=== PATIENT | male | born 1960 | race Caucasian/White ===

== ENCOUNTER → 2017-01-07 | Outpatient (CLI) | payer OTHER ==
[~2017-01-07] MED LIST: IOPAMIDOL (ISOVUE 370) 100 ML BTL IV ONE
== END ==
LOC: CIMAGING 08:05
PROVIDERS: ATTEND Thoracic Surgery (Cardiothoracic Vascular Surgery)
DX: I71.9 Aortic aneurysm of unspecified site, without rupture (principal)
CPT/HCPCS: 71275-PO; Q9967

== ENCOUNTER 2017-04-17 07:00 | Observation (INO) | payer BC, OTHER ==
[~2017-04-17 07:00] MED LIST changes: -IOPAMIDOL (ISOVUE 370) 100 ML BTL IV ONE; +OXYMETAZOLINE 30 ML NASAL SPRAY EACHNARE ONE; +ceFAZolin 2 GM/DEXTROSE 100 ML IV ONE
[2017-04-17] MEDS ORDERED: LR 1,000 ML IV ONE (07:47)
[2017-04-17] MEDS ORDERED: LIDOCAINE 1% 2 ML INJ ID PRN (07:47)
[2017-04-17] MEDS ORDERED: MIDAZOLAM 2 MG/2 ML VIAL IVP ONE (08:39)
--- NOTE | 2017-04-17 08:44 | PDANEPAE ---
ANE History of Present Illness FESS, thyroglossal cyst excision ANE Past Medical History - Cardiovascular History Hx Hypertension: Yes Hx Arrhythmias: No Hx Chest Pain: No Hx Coronary Artery / Peripheral Vascular Disease: No Hx CHF / Valvular Disease: No Hx Palpitations: No Cardiovascular History Comment: on Metoprolol x 2 mos- 128/85;. 10- heart scan: dilated ascending aorta- F/U Dr Shaffer. Pt will monitor Q 12 mos. - Pulmonary History Hx COPD: No Hx Asthma/Reactive Airway Disease: No Hx Recent Upper Respiratory Infection: No Hx Oxygen in Use at Home: No Hx Sleep Apnea: No Sleep Apnea Screening Result - Last Documented: Negative - Neurologic History Hx Cerebrovascular Accident: No Hx Seizures: No Hx Dementia: No - Endocrine History Hx Diabetes: No - Renal History Hx Renal Disorders: No - Liver History Hx Hepatic Disorders: No - Neurological & Psychiatric Hx Hx Neurological and Psychiatric Disorders: No - Cancer History Hx Cancer: No - Congenital Disorder History Hx Congenital Disorders: No - GI History Hx Gastrointestinal Disorders: Yes Gastrointestinal History Comment: dysphagia? - Other Health History Other Health History: thyroid duct lesion -L neck,. chronic maxillary sinusitis - Chronic Pain History Chronic Pain: Yes (sinus pain) - Surgical History Prior Surgeries: ISADORA 2010. R shoulder sx 1984 ANE Review of Systems Review of systems is: negative Review of Systems: - Exercise capacity Exercise capacity: >=4 METS METS (RN): 4 METS ANE Patient History - Allergies Allergies/Adverse Reactions: No Known Allergies Allergy (Verified 04/16/17 17:34) - Home Medications Home Medications: Metoprolol Tartrate [Lopressor 25 mg (*)] 25 mg PO DAILY 04/16/17 [Last Taken 05:30] - NPO status NPO Status: no food or drink >8 hours NPO Since - Liquids (Date): 04/16/17 NPO Since - Liquids (Time): 20:30 NPO Since - Solids (Date): 04/16/17 NPO Since - Solids (Time): 18:00 - Anes Hx Anes Hx: no prior problems - Smoking Hx Smoking Status: Former smoker - Alcohol Use Alcohol Use: Occasionally (4/wk) - Family Anes Hx Family Anes Hx: none ANE Labs/Vital Signs - Vital Signs Blood Pressure: 140/93 Heart Rate: 58 Respiratory Rate: 16 O2 Sat (%): 94 Height: 187.96 cm Weight: 122.47 kg ANE Physical Exam - Airway Neck exam: decreased ROM Mallampati Score: Class 2 Mouth exam: normal dental/mouth exam - Pulmonary Pulmonary: no respiratory distress - Cardiovascular Cardiovascular: regular rate and rhythym - ASA Status ASA Status: II ANE Anesthesia Plan Anesthesia Plan: general endotracheal anesthesia
[2017-04-17] MEDS ORDERED: LIDOCAINE 2% 5 ML SDV ONE (08:59)
[2017-04-17] MEDS ORDERED: ONDANSETRON 4 MG/2 ML VIAL ONE (08:59)
[2017-04-17] MEDS ORDERED: ROCURONIUM 100 MG/10 ML VIAL ONE (08:59)
[2017-04-17] MEDS ORDERED: PROPOFOL 200 MG/20 ML VIAL ONE (08:59)
[2017-04-17] MEDS ORDERED: DEXAMETHASONE 4 MG/ML VIAL ONE (08:59)
[2017-04-17] MEDS ORDERED: fentaNYL 100 MCG/2 ML INJ ONE ×2 (08:59→10:48)
--- NOTE | 2017-04-17 09:03 | PDHPUP ---
History & Physical Update H&P update statement: This history and physical update is based on an assessment of the patient which was completed after admission or registration (within 24 hours), but prior to the surgery/procedure. No new findings. Some increase in neck mass size, per pt. Denies fevers, dysphagia. EXAM AVSS NAD Normal anterior nasal exam Neck supple w superior midline mildly tender mass. CN 2-12 grossly intact A/P: Neck mass, Maxillary sinus mass. Plan to remove in OR today.
[2017-04-17] MEDS ORDERED: OXYMETAZOLINE 30 ML NASAL SPRAY ONE (09:10)
[2017-04-17] MEDS ORDERED: LIDO/EPI 1% **Not for Epidural 20 ML MDV ONE (09:10)
[2017-04-17] MEDS ORDERED: ceFAZolin 1 GM VIAL ONE (12:29)
[2017-04-17] MEDS ORDERED: SUGAMMADEX SODIUM 200 MG/2 ML VIAL IVP ONE (12:29)
--- NOTE | 2017-04-17 13:02 | POSTOPPROG ---
Post Op Note Date of Operation: 04/18/17 Surgeon: Rene Altamirano Anesthesia: GET(General Endotracheal) Pre-op Diagnosis: S/P R Maxillary Antrostomy w FB, Thyroglossal duct cyst excision Post-op Diagnosis: S/P R Maxillary Antrostomy w FB, Thyroglossal duct cyst excision Indication: S/P R Maxillary Antrostomy w FB, Thyroglossal duct cyst excision Procedure: S/P R Maxillary Antrostomy w FB, Thyroglossal duct cyst excision Findings: S/P R Maxillary Antrostomy w FB, Thyroglossal duct cyst excision Inf/Abcess present in the surg proc area at time of surgery?: Yes Depth: Organ Space (R max sinus) EBL: Minimal Drains: Rajan Nelson Specimen(s): neck mass sinus mass
[2017-04-17] MEDS ORDERED: D5W LR 1,000 ML IV SCH (13:04)
[2017-04-17] MEDS ORDERED: OXYMETAZOLINE 30 ML NASAL SPRAY EACHNARE PRN (13:04)
[2017-04-17] MEDS ORDERED: PROMETHAZINE HCL 25 MG/ML INJ IVP PRN (13:20)
[2017-04-17] MEDS ORDERED: NALOXONE HCL 0.4 MG/ML INJ IVP PRN (13:20)
[2017-04-17] MEDS ORDERED: fentaNYL 100 MCG/2 ML INJ IVP PRN (13:20)
[2017-04-17] MEDS ORDERED: HYDROmorphONE/DILAUDID 1 MG/ML INJ IVP PRN (13:20)
[2017-04-17] MEDS ORDERED: ONDANSETRON 4 MG/2 ML VIAL IVP PRN (13:20)
[2017-04-17] MEDS ORDERED: HYDROmorphONE/DILAUDID 1 MG/ML INJ ONE (13:27)
[2017-04-17] MEDS: HEPARIN 5,000 UNIT/0.5 ML SYR SC SCH (15:20)
[2017-04-17] MEDS: HYDROCODONE/APAP 5/325 TAB PO PRN (21:11)
[2017-04-18] MEDS: HEPARIN 5,000 UNIT/0.5 ML SYR SC SCH (05:48)
--- NOTE | 2017-04-18 07:27 | SOAPPROG ---
SOAP Progress Note Assessment/Plan: Assessment:Postop day 1 status post excision of thyroglossal duct cyst and functional endoscopic sinus surgery with removal of right maxillary sinus foreign body. Good postop recovery. The postop findings. Drain removed. Plan: Okay for discharge today. Discharge instructions printed out and placed in chart. Prescriptions provided. Recommend patient follow up in 1 week. Call my office to schedule. [phone] 04/18/17 07:24 Subjective: pain well controlled. Did have some nose bleeding yesterday. This was stopped. Objective: Vital Signs Temp Pulse Resp BP Pulse Ox 36.7 C 75 17 131/100 H 92 04/18/17 04:00 04/18/17 04:00 04/18/17 04:00 04/18/17 04:00 04/18/17 04:00 04/17/17 04/18/17 04/19/17 05:59 05:59 05:59 Intake Total 2200 Output Total 850 Balance 1350 - Pending Discharge Pending Discharge Within 24 Hours: Yes Pending Discharge Date: 04/19/17 Pending Discharge Time: 11:00 Physical Exam - Physical Exam General Appearance: WD/WN, alert, no apparent distress EENT: PERRL/EOMI, normal ENT inspection, pharynx normal, other (Incision at neck. This is intact And non erythematous. Drain incision intact. No erythema or fullness.) Neck: full range of motion, supple Respiratory: No respiratory distress, No stridor Skin: normal color, warm/dry Neuro/Psych: alert, normal mood/affect, oriented x 3 ICD10 Worksheet Patient Problems: Problems Problem Status Onset Maxillary sinusitis, chronic Acute Thyroglossal duct cyst Acute - ICD10 Problem Qualifiers (1) Thyroglossal duct cyst (2) Maxillary sinusitis, chronic
[2017-04-18] MEDS ORDERED: FLU VACC QS 2017-18 (3YR+)/PF 0.5 ML SYR (FLUARIX QUAD) IM ONE (07:43)
[2017-04-18 08:09] VITALS: BP 130/92; PULSE 73; RESP 16; TEMP 98.1; O2SAT 91
[2017-04-18] MEDS: HYDROCODONE/APAP 5/325 TAB PO PRN (09:23)
--- NOTE | 2017-04-18 17:19 | ASDISCHSUM ---
Discharge Information Plan Status:Home with No Needs Medically Cleared to Leave: Discharge Date:04/18/2017 09:51 AM CM D/C Disposition:Home, Routine, Self-Care ADT D/C Disposition:Home, Routine, Self-Care Projected Discharge Date:04/18/2017 12:00 AM Transportation at D/C: Discharge Delay Reason: Follow-Up Date:04/18/2017 12:00 AM Discharge Slot: Final Diagnosis: Placement Information Patient Contact Information Contact Name:CARLOS Relationship: Address:[address] [place] Alternate Phone: [facility]/Zip Code:[place] [address] Email: Financial Information Financial Class:HMO and PPO Plans Primary Plan Desc:HMO [employer] Primary Plan Number:[id number] Secondary Plan Desc: Secondary Plan Number: Assessment Information Intervention Information
--- NOTE | 2017-05-27 11:29 | GPROG ---
[f rep st] PROGRESS NOTE POSTOPERATIVE ANESTHESIA NOTE No anesthetic complications were noted, patient back to baseline cardiopulmonary status. /[id number]/MODL MTDD
--- NOTE | 2017-05-27 15:25 | GOP ---
[f rep st] OPERATIVE REPORT DATE OF OPERATION: 04/17/2017 SURGEON: Rene Altamirano MD ANESTHESIA: General. PREOPERATIVE DIAGNOSIS: Right maxillary sinus mass, thyroglossal duct cyst. POSTOPERATIVE DIAGNOSIS: Right maxillary sinus mass, thyroglossal duct cyst. PROCEDURE PERFORMED: Right endoscopic maxillary antrostomy with foreign body removal, thyroglossal d uct cyst excision. FINDINGS: Right maxillary sinus foreign body, consistent with molar. Anterior neck cystic structure , extending through hyoid bone into the tongue base, consistent with thyroglossal duct cyst. SPECIMENS: Nasal foreign body and neck soft tissue. ESTIMATED BLOOD LOSS: Minimal. INDICATIONS: The patient was seen in the outpatient clinic and found to have history, symptoms, and findings consistent with right maxillary sinus mass and thyroglossal duct cyst. Given his history an d findings, he was determined to be an appropriate candidate for the above-stated procedures. The ri sks, benefits, and alternatives to the procedures were explained at length the patient, who stated he understood and wished to go forward with the procedures. DESCRIPTION OF PROCEDURE: The patient was brought to the operating room by Anesthesiology and placed on the operating table. Once the appropriate level of anesthesia was achieved, the patient was prep ped and draped for the nasal portion of the procedure. 1% lidocaine with 1:100,000 epinephrine was i njected into the uncinate process and middle turbinate. Afrin-soaked pledgets were placed. Once the operative field and equipment were set in place, the Afrin-soaked pledgets were removed. A 0-degree rigid video endoscope was then used in the right nasal cavity to visualize appropriate anatomy. A F reer elevator, in combination with a [id number] cut was used to complete a right uncinect gretel. A backbiter and kjeroikw-tpzim-rolvieq cut were then used to widely open the maxillary antrum. There was mild bleeding with this, and hemostasis was achieved using Bovie suction electrocautery at the fresh cut edges. The 0-degree endoscope was changed out for a 45-degree scope. A curved suctio n was used to clear purulent material from the maxillary antrum and right maxillary sinus. A foreign body was visualized within the maxillary sinus. Attempts were made with a giraffe forceps to grasp these, but this was unsuccessful. The curved suction was then used to medialize the foreign body int o the maxillary antrostomy. Once this was wedged within the antrostomy, a straight suction was used to further medialize it and bring it into the nasal cavity. A nasal tampon forceps was then used to grasp the foreign body and bring it out through the nasal cavity. This was sent in formalin for clarita reynaga pathology reading. Afrin-soaked pledgets were placed within the nasal cavity. After given a chanc e to soak, they were removed. Nasal cavity was visualized under endoscopic visualization. There was minimal bleeding, and the maxillary sinus appeared clear. The patient was then prepped and draped for the neck portion of the procedure. Over the palpable ant erior superior neck mass, a 2 cm incision was created within a horizontal neck crease. Soft tissue d issection continued with a combination of Bovie electrocautery and blunt dissection. The capsule of the lesion was then encountered. Subplatysmal flaps were raised superiorly and inferiorly. 2 pairs of Weitlaners were then used to stent the incisional opening. The capsule of the mass was then follo wed anteriorly and descended to the level of the thyroid cartilage. Once the base of it was found, t his was elevated off the underlying tissues and dissected superiorly. At this point, the cystic mass was violated, and fluid drained. This was suctioned and irrigated. The mass was dissected in a per icapsular fashion superiorly to the level of the hyoid bone. Bovie electrocautery was used to dissec t the muscular attachments off the superior aspects and inferior aspects of the medial portions of th e hyoid bone. The bone was cut bilaterally about 0.5 to 1 cm on each side from midline. The bone en ds were cauterized with Bovie electrocautery. There was no bleeding with this. Dissection continued , with the tract somewhat dissipating but leading superiorly to the base of the tongue. Once this wa s reached superiorly at the tongue base, this was suture ligated, and then, with sutures tied in plac e at the tongue base, the tract was cauterized with bipolar cautery. The specimen was then able to b e removed en heena. This was sent for final pathology. The surgical bed was irrigated with copious normal saline. Superiorly and inferiorly, the surgical site was inspected for bleeding. Hemostasis was readily achieved using bipolar cautery. The site was irrigated again and cleaned. Anesthesia ga ve the patient a Valsalva, and no bleeding or bloody ooze was seen. A silicon BARRY drain was placed wi thin the surgical bed and run out through a skin incision to the left of the primary incision. This was attached to bulb suction. The strap muscles were then reapproximated in the midline using a sing le dniiyv-xr-xxkig chromic suture. The platysma then was reapproximated using interrupted buried chr omic sutures. The subcutaneous tissues were then reapproximated using buried interrupted chromic sut ures. Then the skin was closed using Dermabond. A silk drain suture was placed. The patient tolera mak the procedure well and was extubated in the operating room prior to being transferred, in good co ndition, to the postanesthesia care unit. /[id number]/MODL
--- NOTE | 2017-05-27 18:46 | GDS ---
[f rep st] DISCHARGE SUMMARY REASON FOR ADMISSION: Postop sinus and neck surgery. HOSPITAL COURSE: The patient underwent thyroglossal duct cyst excision and right maxillary sinus for eign body excision on 04/17/2017. He tolerated both procedures well and was kept in-house overnight for airway monitoring and secondary to surgical drain placement. He did well overnight and had good pain control and appropriate levels of drainage from his BARRY drain in his neck. Given his resumption of ADLs, his appropriate tolerance of a regular diet, and the mild drainage from his BARRY drain, he was determined to be appropriate for discharge. The BARRY drain was discontinued and removed. He tolerate d this well. Patient stated he felt like he was ready to go home. His was with him and would b e able to help take care of him at home. He was discharged with pain medication. He was also discha rged with instructions to follow up with ENT in 1 week. He understood to call or follow up sooner sh ould he have any problems or difficulties. /[id number]/MODL
== END 2017-04-18 09:51 | disposition home or self-care (01) ==
LOC: F3E 07:00
PROVIDERS: ADMIT Otolaryngology; ATTEND Otolaryngology
PROC: 099Q4ZZ Drainage of Right Maxillary Sinus, Percutaneous Endoscopic Approach (ICD-10-PCS; principal; 2017-04-17 08:30)
PROC: 09CQ4ZZ Extirpation of Matter from Right Maxillary Sinus, Percutaneous Endoscopic Approach (ICD-10-PCS; principal; 2017-04-17 08:30)
PROC: 0JB40ZZ Excision of Right Neck Subcutaneous Tissue and Fascia, Open Approach (ICD-10-PCS; principal; 2017-04-17 08:30)
DX: Q89.2 Congenital malformations of other endocrine glands (principal); J32.0 Chronic maxillary sinusitis; Z23 Encounter for immunization
CPT/HCPCS: 31267; 60280; 90471; G0378; G0008; J0690; J1100; J1170; J2250; J2405; J2704; J3010

== ENCOUNTER 2017-04-18 18:03 | Observation (INO) | payer OTHER ==
--- NOTE | 2017-04-18 18:36 | EDPHY ---
H & P Stated Complaint: Surgery on thyroid and sinus 04/17/17, swelling to site, difficulty in swoll Time Seen by Provider: 04/18/17 18:30 HPI/ROS: CHIEF COMPLAINT: Expanding hematoma HISTORY OF PRESENT ILLNESS: The patient is a 56-year-old man with thyroid surgery yesterday by Dr. Rene Altamirano. He began noticing swelling in his throat about half an hour ago. Dr. Altamirano met him here in the waiting room and plans to take him to the operating room for an expanding hematoma. He does not have any difficulty breathing. He does not have any stridor. He denies chest pain. REVIEW OF SYSTEMS: Constitutional: denies: chills, fever, recent illness, recent injury EENTM: See HPI, denies: blurred vision, double vision, nose congestion Respiratory: denies: cough, shortness of breath Cardiac: denies: chest pain, irregular heart rate, lightheadedness, palpitations Gastrointestinal/Abdominal: denies: abdominal pain, diarrhea, nausea, vomiting, blood streaked stools Genitourinary: denies: dysuria, frequency, hematuria, pain Musculoskeletal: denies: joint pain, muscle pain Skin: denies: lesions, rash, jaundice, bruising Neurological: denies: headache, numbness, paresthesia, tingling, dizziness, weakness Hematologic/Lymphatic: denies: blood clots, easy bleeding, easy bruising Immunologic/allergic: denies: HIV/AIDS, transplant EXAM: GENERAL: Well-appearing, well-nourished and in no acute distress. HEAD: Atraumatic, normocephalic. EYES: Pupils equal round and reactive to light, extraocular movements intact, sclera anicteric, conjunctiva are normal. ENT: Swelling in the the anterior neck, no stridor, TMs normal, nares patent, oropharynx clear without exudates. Moist mucous membranes. NECK: Normal range of motion, supple without lymphadenopathy or JVD. LUNGS: Breath sounds clear to auscultation bilaterally and equal. No wheezes rales or rhonchi. HEART: Regular rate and rhythm without murmurs, rubs or gallops. ABDOMEN: Soft, nontender, normoactive bowel sounds. No guarding, no rebound. No masses appreciated. BACK: No CVA tenderness, no spinal tenderness, step-offs or deformities EXTREMITIES: Normal range of motion, no pitting or edema. No clubbing or cyanosis. NEUROLOGICAL: Cranial nerves II through XII grossly intact. Normal speech, normal gait. 5/5 strength, normal movement in all extremities, normal sensation PSYCH: Normal mood, normal affect. SKIN: Warm, dry, normal turgor, no visible rashes or lesions. Source: Patient, Family, RN/MD Exam Limitations: No limitations - Personal History Current Tetanus Diphtheria and Acellular Pertussis (TDAP): Yes - Medical/Surgical History Hx Asthma: No Hx Chronic Respiratory Disease: No Hx Diabetes: No Hx Cardiac Disease: No Hx Renal Disease: No Hx Cirrhosis: No Hx Alcoholism: No Hx HIV/AIDS: No Hx Splenectomy or Spleen Trauma: No Other PMH: R shoulder surgery; aortic aneurism - Family History Significant Family History: No pertinent family hx - Social History Smoking Status: Former smoker Alcohol Use: Sober Drug Use: None Constitutional: Initial Vital Signs Temperature (C) 36.4 C 04/18/17 18:08 Heart Rate 58 L 04/18/17 18:08 Respiratory Rate 16 04/18/17 18:08 Blood Pressure 132/85 H 04/18/17 18:08 O2 Sat (%) 94 04/18/17 18:08 O2 Delivery Mode Room Air Allergies/Adverse Reactions: No Known Allergies Allergy (Verified 04/16/17 17:34) Home Medications: Medication Instructions Recorded Metoprolol Tartrate [Lopressor 25 25 mg PO DAILY 04/16/17 mg (*)] Amoxicillin/Clavulanate Pot 875 mg PO BID 04/18/17 [Augmentin 875 MG TAB (*)] Hydrocodone/Acetaminophen [[place] 1 - 2 tab PO Q4H PRN 04/18/17 5/325 (*)] Medical Decision Making ED Course/Re-evaluation: The patient was seen by Dr. Rene Altamirano here in the emergency department. He is prepping the OR. Patient is not in acute distress currently. Differential Diagnosis: Partial list of the Differential diagnosis considered include but were not limited to; hematoma, infection and although unlikely based on the history and physical exam, I also considered foreign body. - Data Points Medications Given: Discontinued Medications Hydrocodone Bitart/Acetaminophen ([place] 5/325) 1 - 2 tab PO Q4HRS PRN PRN Reason: Pain, Moderate to Severe Stop: 04/28/17 20:43 Last Admin: 04/19/17 10:36 Dose: 1 tab Sodium Chloride (Ns) 1,000 mls @ 0 mls/hr IV ONCE ONE PRN Reason: Wide Open Stop: 04/18/17 18:53 Last Admin: 04/18/17 18:55 Dose: 1,000 mls Lidocaine/Epinephrine (Lidocaine 1%-Epi 1:100,000) Confirm Administered Dose 20 ml .ROUTE .STK-MED ONE Stop: 04/18/17 19:09 Last Admin: 04/18/17 19:10 Dose: 6 ml Lidocaine/Epinephrine (Xylocaine 1%-Epi 1:200,000) Confirm Administered Dose 30 ml .ROUTE .STK-MED ONE Stop: 04/18/17 19:09 Last Admin: 04/18/17 19:44 Dose: Not Given Departure - Departure Disposition: [facility] Inpatient Acute Clinical Impression: Hematoma complicating a procedure Condition: Good
[2017-04-18] MEDS ORDERED: NS 1,000 ML IV ONE (18:52)
[2017-04-18] MEDS ORDERED: PROPOFOL 200 MG/20 ML VIAL ONE ×2 (18:55→19:24)
[2017-04-18] MEDS ORDERED: fentaNYL 100 MCG/2 ML INJ ONE (18:55)
--- NOTE | 2017-04-18 19:01 | PDANEPAE ---
ANE History of Present Illness S/P duct cyst excision yesterday with neck hematoma. Denies diff swallowing or breathing. For urgent I&D ANE Past Medical History - Cardiovascular History Hx Hypertension: Yes Hx Arrhythmias: No Hx Chest Pain: No Hx Coronary Artery / Peripheral Vascular Disease: No Hx CHF / Valvular Disease: No Hx Palpitations: No Cardiovascular History Comment: on Metoprolol x 2 mos- 128/85;. 10-16 heart scan: dilated ascending aorta- F/U Dr Shaffer. Pt will monitor Q 12 mos. - Pulmonary History Hx COPD: No Hx Asthma/Reactive Airway Disease: No Hx Recent Upper Respiratory Infection: No Hx Oxygen in Use at Home: No Hx Sleep Apnea: No - Neurologic History Hx Cerebrovascular Accident: No Hx Seizures: No Hx Dementia: No - Endocrine History Hx Diabetes: No - Renal History Hx Renal Disorders: No - Liver History Hx Hepatic Disorders: No - Neurological & Psychiatric Hx Hx Neurological and Psychiatric Disorders: No - Cancer History Hx Cancer: No - Congenital Disorder History Hx Congenital Disorders: No - GI History Hx Gastrointestinal Disorders: Yes Gastrointestinal History Comment: dysphagia? - Other Health History Other Health History: thyroid duct lesion -L neck,. chronic maxillary sinusitis - Chronic Pain History Chronic Pain: Yes (sinus pain) - Surgical History Prior Surgeries: LASIK 2010. R shoulder sx 1984 ANE Review of Systems Review of Systems: ANE Patient History - Allergies Allergies/Adverse Reactions: No Known Allergies Allergy (Verified 04/16/17 17:34) - Home Medications Home medications: home medication list seen and reviewed Home Medications: Metoprolol Tartrate [Lopressor 25 mg (*)] 25 mg PO DAILY 04/16/17 [Last Taken 05:30] - NPO status NPO Since - Liquids (Date): 04/18/17 NPO Since - Liquids (Time): 13:00 NPO Since - Solids (Date): 04/18/17 NPO Since - Solids (Time): 13:00 - Smoking Hx Smoking Status: Former smoker - Alcohol Use Alcohol Use: Sober ANE Labs/Vital Signs - Vital Signs Blood Pressure: 133/95 Heart Rate: 64 Respiratory Rate: 18 O2 Sat (%): 92 Height: 190.5 cm Weight: 113.398 kg ANE Physical Exam - Airway Neck exam: decreased ROM (Hematoma about size of orange anterior midline neck. Fair mouth opeing but some limitation secondary to tight skin.) Mallampati Score: Class 2 Mouth exam: normal dental/mouth exam - Pulmonary Pulmonary: no respiratory distress - Cardiovascular Cardiovascular: regular rate and rhythym - ASA Status ASA Status: II, E ANE Anesthesia Plan Anesthesia Plan: general endotracheal anesthesia (With glidescope)
[2017-04-18] MEDS ORDERED: LIDO/EPI 1% **for epidural** 30 ML SDV ONE (19:08)
[2017-04-18] MEDS ORDERED: LIDO/EPI 1% **Not for Epidural 20 ML MDV ONE (19:08)
[2017-04-18] MEDS ORDERED: NALOXONE HCL 0.4 MG/ML INJ IVP PRN (19:39)
[2017-04-18] MEDS ORDERED: fentaNYL 100 MCG/2 ML INJ IVP PRN (19:39)
[2017-04-18] MEDS ORDERED: HYDROmorphONE/DILAUDID 1 MG/ML INJ IVP PRN (19:39)
[2017-04-18] MEDS ORDERED: ONDANSETRON 4 MG/2 ML VIAL IVP PRN (19:39)
--- NOTE | 2017-04-18 20:42 | POSTOPPROG ---
Post Op Note Date of Operation: 04/18/17 Surgeon: Rene Altamirano Anesthesiologist: Brenda Anesthesia: Epidural Pre-op Diagnosis: Post operative neck hematoma Post-op Diagnosis: Post operative neck hematoma Indication: Post operative neck hematoma Procedure: Neck exploration Findings: Hematoma Inf/Abcess present in the surg proc area at time of surgery?: No Depth: Organ Space EBL: Minimal Drains: Rajan Nelson
--- NOTE | 2017-04-18 20:46 | POSTANESTH ---
Post Anesthetic Evaluation Cardiovascular Status: Normal, Stable Respiratory Status: Normal, Stable Level of Consciousness/Mental Status: Can Participate in Eval Pain Control: Adequate, Prn Tx Ordered Nausea/Vomiting Control: Adequate, Prn Tx Ordered Complications Possibly Related to Anesthesia: None Noted
[2017-04-19] MEDS: HYDROCODONE/APAP 5/325 TAB PO PRN ×2 (00:51→10:36)
--- NOTE | 2017-04-19 07:41 | SOAPPROG ---
SOAP Progress Note Assessment/Plan: Assessment:Status post removal of hematoma following surgery. No evidence of significant swelling today. Drain removed. Plan: Home today. Already has prescriptions filled. Understands follow-up plans to be seen in 1 week. Printed instructions previously given. 04/19/17 07:39 Subjective: Doing well. No complaints. No difficulties overnight. Objective: Vital Signs Temp Pulse Resp BP Pulse Ox 36.8 C 56 L 16 124/92 H 94 04/19/17 04:00 04/19/17 04:00 04/19/17 04:00 04/19/17 04:00 04/19/17 04:00 04/18/17 04/19/17 04/20/17 05:59 05:59 05:59 Intake Total 2880 Output Total 570 Balance 2310 - Pending Discharge Pending Discharge Within 24 Hours: Yes Pending Discharge Date: 04/20/17 Pending Discharge Time: 11:00 Physical Exam - Physical Exam General Appearance: WD/WN, alert, no apparent distress EENT: PERRL/EOMI, normal ENT inspection, pharynx normal Neck: other (Drain removed. Anterior neck incision intact. No erythema. Mild fullness superiorly.) Respiratory: No respiratory distress ICD10 Worksheet Patient Problems: Problems Problem Status Onset Hematoma complicating a procedure Acute Maxillary sinusitis, chronic Acute Thyroglossal duct cyst Acute
[2017-04-19 09:10] VITALS: BP 124/81; PULSE 82; RESP 12; TEMP 97.9; O2SAT 91
--- NOTE | 2017-04-19 11:05 | ASMTCMCOM ---
CM Note CM Note Notes: Spoke with RN, anticipate pt will dc home w/support of when medically stable. CM available for any changes. Date Signed: 04/19/2017 11:04 AM Electronically Signed By:Mila Quigley RN
--- NOTE | 2017-04-19 15:25 | ASDISCHSUM ---
Discharge Information Plan Status:Home with No Needs Medically Cleared to Leave: Discharge Date:04/19/2017 11:20 AM CM D/C Disposition:Home, Routine, Self-Care ADT D/C Disposition:Home, Routine, Self-Care Projected Discharge Date:04/19/2017 11:20 AM Transportation at D/C:Family Discharge Delay Reason: Follow-Up Date:04/19/2017 11:20 AM Discharge Slot: Final Diagnosis: Placement Information Patient Contact Information Contact Name:CARLOS Relationship: Address:[address] [place] Alternate Phone: [facility]/Zip Code:[place] [address] Email: Financial Information Financial Class:HMO and PPO Plans Primary Plan Desc:HMO [employer] Primary Plan Number:[id number] Secondary Plan Desc: Secondary Plan Number: Assessment Information [facility] CM Progress Note CM Note CM Note Notes: Spoke with RN, anticipate pt will dc home w/support of when medically stable. CM available for any changes. Date Signed: 04/19/2017 11:04 AM Electronically Signed By:Mila Quigley RN Intervention Information
== END 2017-04-19 11:20 | disposition home or self-care (01) ==
LOC: INTOOBSV 18:24 → F3E 21:25
PROVIDERS: ADMIT Otolaryngology; ATTEND Otolaryngology
PROC: 3E0337Z Introduction of Electrolytic and Water Balance Substance into Peripheral Vein, Percutaneous Approach (ICD-10-PCS; 2017-04-18)
PROC: 0J940ZZ Drainage of Right Neck Subcutaneous Tissue and Fascia, Open Approach (ICD-10-PCS; principal; 2017-04-18 19:30)
DX: L76.32 Postprocedural hematoma of skin and subcutaneous tissue following other procedure (principal); Q89.2 Congenital malformations of other endocrine glands; J32.0 Chronic maxillary sinusitis; Z87.891 Personal history of nicotine dependence; Z98.890 Other specified postprocedural states
CPT/HCPCS: 35800; 96360; 99285; G0378; J2704; J3010

== ENCOUNTER → 2018-04-23 | Outpatient (CLI) | payer OTHER ==
[~2018-04-23] MED LIST changes: +IOPAMIDOL (ISOVUE 370) 100 ML BTL IV ONE; -OXYMETAZOLINE 30 ML NASAL SPRAY EACHNARE ONE; -ceFAZolin 2 GM/DEXTROSE 100 ML IV ONE
== END ==
LOC: CIMAGING 09:13
PROVIDERS: ATTEND Thoracic Surgery (Cardiothoracic Vascular Surgery)
DX: I71.2 Thoracic aortic aneurysm, without rupture (principal); K76.0 Fatty (change of) liver, not elsewhere classified
CPT/HCPCS: 71275-PO; Q9967